=== PATIENT | female | born 1980 | race Caucasian/White ===

== ENCOUNTER 2023-10-13 12:15 | Outpatient (CLI) | payer MEDICAID, SELFPAY | END 2023-10-13 12:16 | disposition home or self-care (01) | LOC: NFLDREF 10-17 20:26 | PROVIDERS: Visit Provider Nurse Practitioner Family | DX: N30.90 Cystitis, unspecified without hematuria (principal) | CPT/HCPCS: 87086 ==

== ENCOUNTER 2023-11-08 12:58 | Outpatient (CLI) | payer MEDICAID, SELFPAY | END 2023-11-08 12:59 | disposition home or self-care (01) | LOC: NFLDUCREF 12:59 | PROVIDERS: PCP Nurse Practitioner; Visit Provider Nurse Practitioner | DX: R31.21 Asymptomatic microscopic hematuria (principal) | CPT/HCPCS: 87086 ==